=== PATIENT | female | born 1940 | race Caucasian/White ===

== ENCOUNTER 2022-06-26 10:20 | Emergency (ER) | payer MEDICARE ==
[~2022-06-26] VITALS: Ht 157.5 cm; Wt 68.0 kg
[2022-06-26 10:20] VITALS: BP 189/85
--- NOTE | 2022-06-26 10:52 | PCM.EKG ---
[facility] Test Date: 2022-06-26 Test Time: 10:43:39 Pat Name: MARCELINA PORRAS [facility]: [id number] Room: Gender: F Craft Worker: GWEN : 1940 Requested By: BRIANNA GRIGSBY Order Number: [id number] Reading MD: Golden Grigsby Measurements Intervals [place] Rate: 70 P: -50 IN: 314 QRS: -22 QRSD: 84 T: 56 QT: 398 QTc: 430 Interpretive Statements Sinus rhythm Prolonged IN interval Left ventricular hypertrophy No previous ECG available for comparison Electronically Signed On 06-27-2022 3:25:58 EMBEDDED SOFTWARE MANAGER by Golden Grigsby Please click the below link to view image of tracing.
[2022-06-26 11:09] LABS: BASOPHIL % 0.6 % (0.0-0.2); EOSINOPHIL # 0.2 10^3/uL (0.0-0.2); EOSINOPHIL % 3.5 % (0.0-5.0); LYMPHOCYTES # 0.98 10^3/uL1 (1.0-4.8); LYMPHOCYTES % 18.8 % (24.0-44.0); MEAN CORP HGB 30.5 pg (26-34); MONOCYTES # 0.7 10^3/uL (0.3-0.8); MONOCYTES % 13.8 % (5.0-12.0); NEUTROPHIL # 3.3 10^3/uL (1.8-7.7); NEUTROPHILS % 63.3 % (41.0-85.0); PLATELET COUNT 248 10^3/uL (150-400); RED CELL DISTRIBUTION WIDTH 13.1 % (11.5-14.5)
--- NOTE | 2022-06-26 11:12 | DIREP ---
PROCEDURE:CT HEAD OR BRAIN W/O CONTRAST COMPARISON:None. INDICATIONS:weakness - trunk instability TECHNIQUE:CT images were created without intravenous contrast. FINDINGS: VENTRICLES:There is mild prominence of the ventricles and cortical sulci consistent with age related involutional changes. CEREBRUM:Moderate foci of diminished attenuation in the supratentorial white matter consistent with moderate leukoaraiosis. CEREBELLUM:Negative. BRAINSTEM:Negative. BASAL CISTERNS:Negative. HEMORRHAGE (Vol L*W*H*.52):No MASS LESION:No ACUTE INFARCT:No SKULL:Normal. SINUSES:Mucous opacification the ethmoid and bilateral maxillary sinuses. OTHER:None CONCLUSION:Essentially normal examination. Please see above for incidental and/or clinically insignificant findings. Dictated by: John Hearn DO on 06/26/2022 at 11:09 AM
--- NOTE | 2022-06-26 11:17 | DIREP ---
PROCEDURE:CHEST 1 VIEW COMPARISON:None. INDICATIONS:possible stroke FINDINGS: LUNGS/PLEURA:Patchy multi lobar airspace disease. VASCULATURE:Normal. Unremarkable pulmonary vasculature. CARDIAC:Normal. No cardiac silhouette abnormality or cardiomegaly. MEDIASTINUM:Normal. No visible mass or adenopathy. BONES:Normal. No fracture or visible bony lesion. OTHER:Negative. CONCLUSION:Patchy multi lobar airspace disease Dictated by: John Hearn DO on 06/26/2022 at 11:11 AM
--- NOTE | 2022-06-26 11:19 | DIREP ---
PROCEDURE:CTA HEAD NECK WITH CONTRAST COMPARISON:None. INDICATIONS:weakness - trunk instability TECHNIQUE:After obtaining the patient's consent, CTA images of the head and neck were obtained with non-ionic contrast, including multi-planar/3-D imaging to optimize visualization of vascular anatomy. FINDINGS: NECK CTA: AORTIC ARCH:Normal configuration. Atherosclerotic changes. RIGHT CAROTID SYSTEM:Atherosclerotic changes. Approximately 50% narrowing of the origin of the right internal carotid artery. No further flow-limiting stenosis or aneurysmal dilation noted. LEFT CAROTID SYSTEM:Atherosclerotic changes. Approximately 30% luminal narrowing of the proximal left internal carotid artery. No further flow-limiting stenosis or aneurysmal dilation noted. VERTEBRAL ARTERIES: Unremarkable. NECK TISSUES:Unremarkable. LUNGS:Unremarkable. MEDIASTINUM:Unremarkable. BONE:No fracture. Complete opacification of the paranasal sinuses. Mastoid air cells are clear. Degenerative changes of the cervical spine, most severe at the C5-6 and C6-7 levels. Mild anterolisthesis of C4 on C5. HEAD CTA: INTERNAL CAROTIDS:Unremarkable. ANTERIOR CEREBRALS:Unremarkable. MIDDLE CEREBRALS:Unremarkable. VERTEBRALS/BASILAR:Unremarkable. POSTERIOR CEREBRALS:The right posterior cerebral artery fills predominantly from the anterior circulation via the right posterior communicating artery. PCOMM'S:Present bilaterally. CONCLUSION:1. Atherosclerotic changes, with approximately 50% narrowing of the origin of the right internal carotid artery, and approximately 30% narrowing of the origin of the left internal carotid artery. 2. Normal variant vascular anatomy as above. 3. Complete pansinus opacification. Dictated by: Jayne Keenan M.D. on 06/26/2022 at 11:08 AM
[2022-06-26 11:22] LABS: CARBON DIOXIDE 26.8 mmol/L (20.0-32)
[2022-06-26 11:59] VITALS: BP 180/100
[2022-06-26 12:00] LABS: BILIRUBIN,URINE NEGATIVE (NEGATIVE); UROBILINOGEN,URINE 0.2 E.U./dL (0.2)
[2022-06-26] MEDS ORDERED: TRANDATE IV STA (12:10)
[2022-06-26] MEDS ORDERED: TRANDATE IV ONE (12:15)
--- NOTE | 2022-06-26 12:20 | NUR ---
UPDATE LABETALOL 10 MG ORDERED AND PT RECEIVED ONLY 5 MG AT THIS TIME DUE TO HER BP STARTING TO TREND DOWN ON ITS OWN.
[2022-06-26] MEDS ORDERED: ZITHROMAX PO STA (12:25)
--- NOTE | 2022-06-26 12:36 | ER.PDOC ---
General Chief Complaint: Requesting Medical Care Stated Complaint: WEAKNESS TRAVEL OUT OF US: No Time seen by MD: 10:20 Source: patient, EMS Exam Limitations: no limitations History of Present Illness Initial Comments Patient is an 81-year-old female with a past medical history of hypertension who comes in with kind of sudden onset weakness per her via EMS. EMS states that she had a sudden onset of weakness 2 days ago. So her thought she was having a stroke EMS states that she is weak however they are mostly concerned about her trunk instability.Patient states she just has generalized weakness no other symptoms whatsoever. She states that activity makes her symptoms worse and she does not know what makes it better she does state that she has been more active prior to the past 2 days to have her and her were doing a lot of activities and she thinks she is just weak from that. Past Medical History Medical History: congestive heart failure, GERD, hypertension Surgical History: appendectomy, tubal Family History Significant Family History: no pertinent family hx Social History Smoking: non-smoker Alcohol Use: none Drug Use: none Reviewed Nursing Reviewed: Vital Signs, Abn. Noted, Nursing Assessment Review of Systems Constitutional: weakness EENTM: no symptoms reported Respiratory: no symptoms reported Cardiovascular: no symptoms reported Gastrointestinal: no symptoms reported Genitourinary: no symptoms reported Musculoskeletal: no symptoms reported Skin: no symptoms reported Psychiatric/Neurological: no symptoms reported Hematologic/Lymphatic: no symptoms reported Immunological/Allergic: no symptoms reported Physical Exam General Appearance: No Apparent Distress, WD/WN EENT: eyes nml inspection, nml ENT inspection Neck: Non-Tender, Full Range of Motion Respiratory: chest non-tender, rhonchi CVS: reg rate & rhythm, no murmur Gastrointestinal: Normal Bowel Sounds Back: Normal Inspection Extremities: Normal Range of Motion, Non-Tender Neurologic/Psychiatric: mdm sr II-XII NML as Tested, Alert, Normal Mood/Affect, Other (Possible trunk instability I am not convinced but she says that she usually does not do this.) Skin: Normal Color Lymphatic: No Adenopathy Results/Orders Results/Orders Orders - BRIANNA FONG MD Cbc With Auto Diff (06/26/22 10:23) Comprehensive Metabolic Panel (06/26/22 10:23) Creatine Kinase (06/26/22 10:23) PT (06/26/22 10:23) Xr Chest 1v (06/26/22 10:23) Partial Thromboplastin Time. (06/26/22 10:23) Urinalysis (06/26/22 10:23) EKG (06/26/22 10:23) Ct Head Wo Contrast (06/26/22 10:23) Saline Lock (06/26/22 10:23) Troponin I High Sensitivity (06/26/22 10:23) Cta Neck (06/26/22 10:23) Cta Head (06/26/22 10:23) Labetalol Hcl (Trandate) (06/26/22 12:10) Labetalol Hcl (Trandate) (06/26/22 12:15) Azithromycin (Zithromax) (06/26/22 12:25) Vital Signs Date Time Temp Pulse Resp B/P (MAP) Pulse Ox O2 Delivery O2 Flow Rate FiO2 06/26/22 11:59 63 18 180/100 (126) 92 Room Air* 0 21 06/26/22 10:20 97.8 73 18 95 06/26/22 10:20 97.8 73 18 189/85 (119) 95 Room Air* 0 21 06/26/22 10:20 97.8 73 18 Administered Medications Medications (Trade) Dose Ordered Sig/Alejandro Route PRN Reason Start Time Stop Time Status Last Admin Dose Admin Labetalol HCl (Trandate) 10 mg OT STAT IV 06/26/22 12:10 06/26/22 12:11 DC 06/26/22 12:19 10 MG Laboratory Tests Test 06/26/22 00:00 06/26/22 10:59 Urine Collection Type UNKNOWN Urine Color YELLOW Urine Appearance CLEAR Urine Bilirubin NEGATIVE (NEGATIVE) Urine Ketones NEGATIVE (NEGATIVE) Urine Specific [place] 1.015 (1.005-1.030) Urine pH 7.0 (4.5-8.0) Urine Protein NEGATIVE (NEGATIVE) Urine Urobilinogen 0.2 E.U./dL (0.2) Urine Nitrate NEGATIVE (NEGATIVE) Urine Leukocyte Esterase NEGATIVE (NEGATIVE) Urine Glucose (Auto)(UA) NEGATIVE (NEGATIVE) Urine Blood NEGATIVE (NEGATIVE) White Blood Count 5.2 10^3/uL (4.5-11.0) Red Blood Count 4.33 10^6/uL (4.00-5.20) Hemoglobin 13.2 g/dL (12.0-15.0) Hematocrit 42.4 % (36.0-46.0) Mean Corpuscular Volume 97.9 fL (78-100) Mean Corpuscular Hemoglobin 30.5 pg (26-34) Mean Corpuscular Hemoglobin Concent 31.1 g/dL (33-36.5) L Red Cell Distribution Width 13.1 % (11.5-14.5) Platelet Count 248 10^3/uL (150-400) Mean Platelet Volume 10.2 fL (7.8-11.0) Neutrophils (%) (Auto) 63.3 % (41.0-85.0) Lymphocytes (%) (Auto) 18.8 % (24.0-44.0) L Monocytes (%) (Auto) 13.8 % (5.0-12.0) H Neutrophils # (Auto) 3.3 10^3/uL (1.8-7.7) Lymphocytes # (Auto) 0.98 10^3/uL1 (1.0-4.8) L Monocytes # (Auto) 0.7 10^3/uL (0.3-0.8) Absolute Immature Granulocyte (auto 0 10^3 u/L (0-2) Absolute Eosinophils (auto) 0.2 10^3/uL (0.0-0.2) Immature Granulocytes % 0.00 % (0.00-0.50) Eosinophils % 3.5 % (0.0-5.0) Basophils % 0.6 % (0.0-0.2) H Basophils # 0.0 10^3/uL (0.0-0.1) Prothrombin Time 10.5 SEC (9.1-11.5) Prothrombin Time INR (Non-Therap) 1.0 Activated Partial Thromboplast Time 27.3 SEC (22.5-33.1) Sodium Level 139 mmol/L (132-145) Potassium Level 3.9 mmol/L (3.6-5.2) Chloride Level 102.0 mmol/L (96-109) Carbon Dioxide Level 26.8 mmol/L (20.0-32) Anion Gap 14.1 Blood Urea Nitrogen 20 mg/dL (7-18) H Creatinine 0.96 mg/dL (0.59-1.40) Estimated GFR () 67.2 (>/=60) Est GFR (CKD-EPI)(Non-Afr Malagasy) 55.5 (>/=60) BUN/Creatinine Ratio 20.0 Glucose Level 104 mg/dL (70-110) Calcium Level 9.7 mg/dL (8.4-10.5) Total Bilirubin 0.4 mg/dL (0.2-1.0) Aspartate Amino Transferase (AST) 23 U/L (0-35) Alanine Aminotransferase (ALT) 21 U/L (12-78) Alkaline Phosphatase 56 U/L (50-136) Total Creatine Kinase 47 U/L (26-192) Troponin I High Sensitivity 18 ng/L (0-50) Total Protein 6.8 g/dL (6.4-8.2) Albumin 3.0 g/dL (3.4-5.0) L Globulin 3.8 Albumin/Globulin Ratio 0.789 Progress Progress All labs imaging EKG interpreted by me Comorbidities must take into consideration as the patient has a elderly and a past medical history of hypertension and thus we need to get labs EKG chest x- ray because patient does have this new onset trunk instability she is outside of any window symptoms been going on for 2 days not super convinced that it is actually trying instability versus her just being tired because if you notice when she is not paying attention to it she is able to move both sides of her trunk however because of her age and past medical history as we do need to rule out acute stroke so CT Noncon as well as CTAs of the head and neck will be ordered. We will continue to monitor closely. My interpretation of patient's work-up is as followsLooking at patient's CBC is within normal limits looking at patient's coagulation factors within normal limits patient's urine within normal limits patient's chemistry shows a mild dehydration troponin within normal limits interpreting patient's EKG she is got a sinus rhythm at a rate of 70 no STEMI is present QTc of 430He can find more on the computer readout. Looking at patient's CT of her head and we will see anything acute radiology later agreed with me although did see some moderate leukoaraiosisLooking at patient's chest x-ray my interpretation does show multilobular infiltrates radiology later Read it as "patchy multilobular airspace disease. The CTAs I was looking at them and looks like a lot of atherosclerotic changes however cannot see any acute strokes radiology later agreed with the reading that they see the atherosclerotic changes with approximately 50% narrowing of the right internal carotid and 30% of the left internal carotid but other than that nothing acute. Looking at patient's chemistry we already discussed above please see there. [id number] not like patient has pneumonia and mild dehydration do believe that to be the cause of her symptoms no longer having any trunk instability she is got full strength on both sides we have monitored here her blood pressures come down nicely she was initially hypertensive and considered hypertensive emergency however patient states that she lives there as her blood pressure has been being changed frequently her blood pressure medications have been changed frequently. She currently states that she feels a little bit better we will go ahead and give her azithromycin her first dose here and discharge her with cefpodoxime and azithromycin she voiced understanding of when to follow-up and when to return to the ER. ER DEPART Departure Time of Disposition: 12:44 Disposition: 01 HOME / SELF CARE / HOMELESS Impression: Primary Impression: PNA (pneumonia) Additional Impression: Dehydration Condition: Improved Patient Instructions: Dehydration, Elderly, Pneumomediastinum Referrals: PCP,UNKNOWN (PCP) PRIMARY CARE PROVIDER Additional Instructions: Follow-up with your primary care provider within next week. If any new persistent or worsening symptoms concerns seek medical attention. Please take medications as prescribed. Duration or Time Spent with Pa: 45 Problem Qualifiers Primary Impression: PNA (pneumonia) Pneumonia type: due to unspecified organism Laterality: bilateral Lung location: unspecified part of lung Qualified Codes: J18.9 - Pneumonia, unspecified organism BRIANNA FONG MD Jun 26, 2022 12:36
[2022-06-26 12:37] VITALS: BP 168/74
[2022-06-26] MEDS ORDERED: ZITHROMAX PO ONE (12:39)
== END 2022-06-26 13:00 | disposition home or self-care (01) ==
LOC: ER 10:20
DX: J18.9 Pneumonia, unspecified organism (principal); E86.0 Dehydration; I11.0 Hypertensive heart disease with heart failure; I50.9 Heart failure, unspecified; K21.9 Gastro-esophageal reflux disease without esophagitis; Z90.49 Acquired absence of other specified parts of digestive tract; Z98.51 Tubal ligation status
CPT/HCPCS: 99285; 70498; 96374; 71045; 70496; 81003; 80053; 85025; 36415; 84484; 82550; 85610; 85730; 93005; 70450; Q9965; J3490; Q0144